=== PATIENT | female | born 1965 | race African-American/Black ===

== ENCOUNTER → 2024-08-18 15:01 | Outpatient (REF) | payer OTHER, SELFPAY | LOC: WDC 15:01 | PROVIDERS: ATTENDING PHYSICIAN Student in an Organized Health Care Education/Training Program | DX: Z12.31 Encounter for screening mammogram for malignant neoplasm of breast (principal) | CPT/HCPCS: 77063; 77067 ==

== ENCOUNTER 2024-11-02 07:38 | Emergency (ER) | payer OTHER, SELFPAY ==
[2024-11-02 07:40] VITALS: BP 173/90
--- NOTE | 2024-11-02 08:34 | ED.GENMED ---
History of Present Illness
General
Chief Complaint: Skin Problem
Time Seen by Provider: 11/02/24 07:56
History of Present Illness
History of Present Illness:
58-year-old female with history of hypertension and hypothyroidism presents the emergency department for evaluation of bleeding from varicose vein to the left calf that began after showering this morning. Bleeding is now controlled on arrival. She
is not on anticoagulants
Review of Systems
Review of Systems
Allergies reviewed?: Yes
All Other Systems: ROS reviewed and negative except as documented in HPI and ROS
Phy Exam
Physical Exam
Physical Exam:
GEN: Well appearing, NAD, WDWN
HEENT: Oral mucosa moist, no scleral icterus
Cardiac: Regular rate
Lung: No respiratory distress, no tachypnea
MSK: No gross deformity or injuries
Skin: Good color, no pallor or jaundice, no rashes. Small clotted area overlying a superficial varicosity to the left calf with evidence of prior bleeding
Neuro: AO x3, moves all extremities freely
Psych: Calm, cooperative
Course
Vital Signs
Initial and Last Documented VS:
Initial Vital Signs
Temp Pulse Resp BP Pulse Ox
98.1 F 64 18 173/90 100
11/02/24 07:40 11/02/24 07:40 11/02/24 07:40 11/02/24 07:40 11/02/24 07:40
Last Documented Vital Signs
Temp Pulse Resp BP Pulse Ox
98.1 F 64 18 173/90 100
11/02/24 07:40 11/02/24 07:40 11/02/24 07:40 11/02/24 07:40 11/02/24 07:40
MDM/Problems Addressed
MDM/Problems Addressed:
Skin glue applied for definitive hemostasis, recommend outpatient vascular follow-up for evaluation of her chronic varicosities
*Critical Care Note
Total Time (30-74mins, 75-104mins- exclusive of procedures): Not Applicable
ED Attending Note
-
Portions of this chart may have been created with voice recognition software.� Occasional wrong word or��sound alike� substitutions may have occurred due to the inherent limitations of voice recognition software.
Discharge Plan
Departure
Patient Disposition: Home (Routine Discharge)
Date of Disposition: 11/02/24
Time of Disposition: 08:38
Patient with high blood pressure during this ER visit?: No
Discharge Problem:
Bleeding from varicose vein
Instructions: Varicose Veins (DC)
Referrals:
Angelina Zacarias MD [Family Provider, Internal Medicine]
Robe Quintero MD [Active, Vascular Surgery]
Stand Alone Forms: Return to Work
Interventions
Interventions:
*Risk Screen - Suicide Last Done: 11/02/24 07:40
*General Assessment Last Done: 11/02/24 07:40
*Neglect/Abuse Screening Last Done: 11/02/24 07:40
Discharge Date and Time
Print Language: MOZAMBICAN
== END 2024-11-02 10:00 | disposition home or self-care (01) ==
LOC: EMR 07:38
PROVIDERS: EMERGENCY PHYSICIAN Emergency Medicine; FAMILY PHYSICIAN Student in an Organized Health Care Education/Training Program
DX: I83.892 Varicose veins of left lower extremity with other complications (principal); E03.9 Hypothyroidism, unspecified; I10 Essential (primary) hypertension
CPT/HCPCS: 99282

== ENCOUNTER → 2025-04-20 08:05 | Outpatient (REF) | payer OTHER, SELFPAY | LOC: RAD 08:05 | PROVIDERS: ATTENDING PHYSICIAN Student in an Organized Health Care Education/Training Program; FAMILY PHYSICIAN Student in an Organized Health Care Education/Training Program | DX: I83.90 Asymptomatic varicose veins of unspecified lower extremity (principal); R60.0 Localized edema | CPT/HCPCS: 93922 ==